=== PATIENT | female | born 1955 | race Caucasian/White ===

== ENCOUNTER 2021-03-11 18:07 | Inpatient (IN) | payer MEDICARE, OTHER ==
[2021-03-10] MEDS: SODIUM CHLORIDE 0.9% 1000ML 1,000 ML IV SCH (23:30)
[~2021-03-11] VITALS: Ht 165.1 cm; Wt 89.8 kg
[2021-03-11] MEDS ORDERED: SODIUM CHLORIDE 0.9% 250ML 250 ML IV ONE (18:30)
[2021-03-11 19:11] LABS: BASOPHILS % 0.2 % (0.0-1.0); EOSINOPHILS # (AUTO) 0.1 (0.0-0.4); EOSINOPHILS % 1.8 % (0.0-6.0); HEMATOCRIT 29.9 % (34.2-44.1); HEMOGLOBIN 8.9 g/dL (12.0-16.0); LYMPHOCYTES # (AUTO) 1.3 (1.0-3.2); LYMPHOCYTES % 25.5 % (18.0-39.1); MEAN CORPUSCULAR HEMOGLOBIN 28.4 pg (28-32); MEAN CORPUSCULAR HGB CONC 29.8 g/dL (31-35); MEAN CORPUSCULAR VOLUME 95.5 fL (81-99); MONOCYTES # (AUTO) 0.6 (0.2-0.8); MONOCYTES % 10.8 % (4.4-11.3); NEUTROPHILS # (AUTO) 3.1 (2.1-6.9); NEUTROPHILS % 61.5 % (38.7-80.0); PLATELET COUNT 240 x10e3/uL (140-360); RED BLOOD COUNT 3.13 x10e6/uL (3.6-5.1)
[2021-03-11 19:37] LABS: ALBUMIN 3.8 g/dL (3.5-5.0); ALBUMIN/GLOBULIN RATIO 1.2 (0.8-2.0); ANION GAP 17.2 mmol/L (8-16); CALCIUM 9.7 mg/dL (8.4-10.2); CREATININE, SERUM 0.81 mg/dL (0.57-1.11); POTASSIUM 4.2 mmol/L (3.5-5.1)
[2021-03-11 20:11] LABS: CREATINE KINASE MB 1.7 ng/mL (0-5.0)
[2021-03-11] MEDS ORDERED: BISACODYL 5 MG TAB EC PO ONE (20:45)
[2021-03-11 21:03] VITALS: BP 132/49
[2021-03-11 22:02] LABS: HYPOCHROMASIA MODERATE; PLATELET ESTIMATE ADEQUATE; PLATELET MORPHOLOGY COMMENT NORMAL
[2021-03-11 23:00] VITALS: BP 105/51
[2021-03-11] MEDS ORDERED: CITRATE OF MAGNESIA 300ML BOTTLE PO ONE (23:00)
[2021-03-11] MEDS: SODIUM CHLORIDE 0.9% 1000ML 1,000 ML IV SCH (23:30)
[2021-03-11] MEDS ORDERED: AMIODARONE 900MG 500 ML IV ONE ×2 (23:30→23:42)
[2021-03-11] MEDS ORDERED: AMIODARONE HCL 100 ML IV ONE (23:42)
[2021-03-12] VITALS (7 sets, daily range): BP systolic 105–132; BP diastolic 51–58
[2021-03-12 01:30] LABS: INR 0.91
[2021-03-12 01:31] LABS: PARTIAL THROMBOPLASTIN TIME 25.8 seconds (23.8-35.5)
[2021-03-12] MEDS: SODIUM CHLORIDE 0.9% 1000ML 1,000 ML IV SCH ×3 (02:30→13:09)
[2021-03-12] MEDS ORDERED: CITRATE OF MAGNESIA 300ML BOTTLE PO ONE (05:00)
[2021-03-12] MEDS ORDERED: PIOGLITAZONE HC45 MG PO (05:44)
[2021-03-12] MEDS ORDERED: LISINOPRIL20 MG PO (05:44)
[2021-03-12] MEDS ORDERED: PRESERVISION T1 EACH PO (05:44)
[2021-03-12] MEDS ORDERED: XARELTO20 MG PO (05:44)
[2021-03-12] MEDS ORDERED: GLIPIZIDE10 MG PO (05:44)
[2021-03-12] MEDS ORDERED: FIBER SELECT G1 EACH PO (05:44)
[2021-03-12] MEDS ORDERED: LEVEMIR FL100 UNIT/1 SQ (05:44)
[2021-03-12] MEDS ORDERED: HYDROCHLOROTHIA25 MG PO (05:44)
[2021-03-12] MEDS ORDERED: METFORMIN HCL1000 MG PO (05:44)
[2021-03-12] MEDS ORDERED: BIOTIN2500 MCG PO (05:44)
[2021-03-12] MEDS ORDERED: ATORVASTATIN CA40 MG PO (05:44)
[2021-03-12] MEDS ORDERED: CAL MAG ZINC +1 EAC1 PO (05:44)
[2021-03-12] MEDS ORDERED: IOPAMIDOL 370 MG/ML 200 ML INFUS..BTL INJ ONE (13:44)
[2021-03-12] MEDS ORDERED: SODIUM CHLORIDE 0.9% 0 ML ONE (13:45)
[2021-03-12] MEDS ORDERED: SODIUM CHLORIDE 0.9% 50ML 100 ML ONE (14:45)
[2021-03-12 15:43] LABS: BASOPHILS % 0.5 % (0.0-1.0); EOSINOPHILS # (AUTO) 0.1 (0.0-0.4); EOSINOPHILS % 1.7 % (0.0-6.0); HEMATOCRIT 28.3 % (34.2-44.1); HEMOGLOBIN 8.3 g/dL (12.0-16.0); LYMPHOCYTES # (AUTO) 0.7 (1.0-3.2); LYMPHOCYTES % 17.1 % (18.0-39.1); MEAN CORPUSCULAR HEMOGLOBIN 28.6 pg (28-32); MEAN CORPUSCULAR HGB CONC 29.3 g/dL (31-35); MEAN CORPUSCULAR VOLUME 97.6 fL (81-99); MONOCYTES # (AUTO) 0.5 (0.2-0.8); MONOCYTES % 12.6 % (4.4-11.3); NEUTROPHILS # (AUTO) 2.7 (2.1-6.9); NEUTROPHILS % 67.9 % (38.7-80.0); PLATELET COUNT 236 x10e3/uL (140-360); RED CELL DISTRIBUTION WIDTH 15.1 % (11.7-14.4)
[2021-03-13 00:12] VITALS: BP 120/58
[2021-03-13] MEDS: SODIUM CHLORIDE 0.9% 1000ML 1,000 ML IV SCH ×2 (04:15→09:04)
[2021-03-13 05:41] VITALS: BP 120/50
[2021-03-13 07:41] VITALS: BP 122/52
[2021-03-13] MEDS ORDERED: PIOGLITAZONE HCL 45 MG TAB PO SCH (09:00)
[2021-03-13] MEDS ORDERED: LISINOPRIL 20 MG TAB PO SCH (09:00)
[2021-03-13] MEDS ORDERED: RIVAROXABAN 20 MG TABLET PO SCH (09:00)
[2021-03-13] MEDS ORDERED: HYDROCHLOROTHIAZIDE 25 MG TAB PO SCH (09:00)
[2021-03-13 11:33] VITALS: BP 141/62
== END 2021-03-13 13:07 | disposition home or self-care (01) | DRG 310 ==
LOC: ER 18:13 → ERHOLD 18:22 → MED/SURG 20:30 → MED/SURG3 22:41
PROVIDERS: ADMIT Internal Medicine Interventional Cardiology; ATTEND Internal Medicine Interventional Cardiology
DX: I48.0 Paroxysmal atrial fibrillation (principal); Z79.01 Long term (current) use of anticoagulants; D50.0 Iron deficiency anemia secondary to blood loss (chronic); Z86.16 Personal history of COVID-19
CPT/HCPCS: 36415; 71275; 80053; 82550; 82553; 82948; 84484; 85025; 85610; 85730; 86850; 86900; 86920; 93005; 94799; 99284; J7030; J7050; Q9967; U0002